=== PATIENT | female | born 1985 | race Caucasian/White ===

== ENCOUNTER 2019-03-09 13:09 | Emergency (ER) | payer OTHER ==
[~2019-03-09] VITALS: Ht 167.6 cm; Wt 90.7 kg
[2019-03-09] MEDS ORDERED: LIDOCAINE HCL 1% 20 ML VIAL ONE (13:42)
[2019-03-09 14:35] VITALS: BP 128/77
--- NOTE | 2019-03-09 14:35 | NUR ---
Patient discharged to home in stable conditon. Written and verbal after care instructions given. Patient verbalizes understanding of instructions. Patient ambulated with stable gait.
== END 2019-03-09 14:36 | disposition home or self-care (01) ==
LOC: ER 13:09
DX: M54.2 Cervicalgia (principal); M25.511 Pain in right shoulder; Z88.0 Allergy status to penicillin
CPT/HCPCS: 20553; 99284; J3490; A4663

== ENCOUNTER 2019-11-29 09:35 | Emergency (ER) | payer OTHER ==
[~2019-11-29] VITALS: Ht 167.6 cm; Wt 85.7 kg
--- NOTE | 2019-11-29 09:43 | NUR ---
Patient ambulated with stable gait. A/Ox4. Speech is clear, speaks in complete sentences. Patient came foir c/o off an allergic reaction to what she thinks is from a new multivitamin that she started taking x3 days ago. Rashes/urticaria localized to the facial region, denies any respiratory distress at this moment. Lung sounds clear bilaterally.
--- NOTE | 2019-11-29 09:47 | NUR ---
Seen and screened by ERMD, patient not in emergent situation. Patient discharged to home in stable condition. Written and verbal after care instructions given. Patient verbalizes understanding of instructions. Stressed follow up or return to ER for worsening s/s. Patient ambulated with stable gait.
[2019-11-29 09:48] VITALS: BP 107/85
== END 2019-11-29 09:48 | disposition home or self-care (01) ==
LOC: ER 09:35
DX: T78.3XXA Angioneurotic edema, initial encounter (principal); Z88.0 Allergy status to penicillin
CPT/HCPCS: A4663

== ENCOUNTER 2019-12-01 14:03 | Emergency (ER) | payer OTHER ==
[~2019-12-01] VITALS: Ht 167.6 cm; Wt 55.8 kg
[2019-12-01] MEDS: predniSONE 50 MG TABLET PO ONE (14:29)
[2019-12-01] MEDS: FAMOTIDINE 20 MG TABLET PO ONE (14:29)
[2019-12-01] MEDS: diphenhydrAMINE 25 MG CAP PO ONE (14:29)
[2019-12-01] MEDS ORDERED: FAMOTIDINE 20 MG TABLET ONE (14:30)
[2019-12-01] MEDS ORDERED: predniSONE 50 MG TABLET ONE (14:30)
[2019-12-01] MEDS ORDERED: diphenhydrAMINE 25 MG CAP PO ONE (14:30)
--- NOTE | 2019-12-01 15:00 | NUR ---
Patient discharged to home in stable condition. Written and verbal after care instructions given. Patient verbalizes understanding of instructions. Stressed follow up or return to ER for worsening s/s.
== END 2019-12-01 15:00 | disposition home or self-care (01) ==
LOC: ER 14:03
DX: L27.0 Generalized skin eruption due to drugs and medicaments taken internally (principal); T45.2X5A Adverse effect of vitamins, initial encounter; Y92.89 Other specified places as the place of occurrence of the external cause; Z88.0 Allergy status to penicillin
CPT/HCPCS: 99284; J7512; Q0163; A4663

== ENCOUNTER 2024-10-19 09:35 | Emergency (ER) | payer MEDICAID, OTHER ==
[~2024-10-19] VITALS: Ht 167.6 cm; Wt 81.6 kg
[2024-10-19 09:37] VITALS: BP 123/70
[2024-10-19] MEDS ORDERED: KETOROLAC TROMETHAMINE 15 MG INJ ONE (09:50)
[2024-10-19] MEDS: IV NORMAL SALINE 1000 ML BAG IV ONE (10:07)
[2024-10-19] MEDS: KETOROLAC TROMETHAMINE 15 MG INJ IVP ONE (10:07)
[2024-10-19 10:09] LABS: PLATELET COUNT (AUTO) 215 K/uL (179-408); RED BLOOD CELL COUNT(AUTO) 4.40 MIL/uL (3.63-4.92); RED CELL DISTRIBUTION WIDTH 14.2 % (12.3-17.7); WHITE BLOOD COUNT (AUTO) 5.7 K/uL (3.8-11.8)
[2024-10-19 10:28] LABS: ASPARTATE AMINOTRANSFERASE 9.0 U/L (15-37); CREATININE 0.6 mg/dL (0.6-1.3); SODIUM SERUM 142.0 mmol/L (136-145); TOTAL PROTEIN, SERUM 8.1 g/dL (6.4-8.2); UREA NITROGEN, BLOOD 12.0 mg/dL (7-18)
[2024-10-19 10:45] LABS: *CLARITY,URINE CLEAR (CLEAR); *COLOR,URINE AMBER (YELLOW); *PROTEIN,URINE 1+ (NEGATIVE); *UROBILINOGEN,URINE 4.0 E.U./dl (NORMAL); NITRITE, URINE POSITIVE (NEGATIVE); UGLUCOSE TRACE (NEGATIVE)
[2024-10-19 10:46] LABS: *BILIRUBIN,URIN NEGATIVE (NEGATIVE); *KETONES,URINE NEGATIVE (NEGATIVE)
[2024-10-19 10:47] LABS: LEUKOCYTE ESTERASE ,URINE 2+ (NEGATIVE)
[2024-10-19 10:53] LABS: *URINE HCG, QUAL NEGATIVE (NEGATIVE)
[2024-10-19] MEDS ORDERED: MEROPENEM 1GM/NS 100ML IVPB **ER PYXIS ONLY IV ONE (11:06)
[2024-10-19] MEDS ORDERED: PHEN-704 PO (11:09)
[2024-10-19] MEDS ORDERED: IBUP-1955 PO (11:09)
[2024-10-19] MEDS ORDERED: CIPR500T5 PO (11:09)
[2024-10-19] MEDS: MEROPENEM 1,000 MG in IV NORMAL SALINE 100 ML IV ONE (11:13)
[2024-10-19 11:19] LABS: *BLOOD, URINE TRACE (NEGATIVE); SQUAMOUS EPITHELIAL CELL,UR FEW /HPF (NONE SEEN)
[2024-10-19 11:45] LABS: *CLARITY,URINE CLEAR (CLEAR); *COLOR,URINE AMBER (YELLOW)
[2024-10-19 11:46] LABS: *BILIRUBIN,URIN TRACE (NEGATIVE); *BLOOD, URINE TRACE (NEGATIVE); *KETONES,URINE NEGATIVE (NEGATIVE); *PROTEIN,URINE 1+ (NEGATIVE); *UROBILINOGEN,URINE 4.0 E.U./dl (NORMAL); LEUKOCYTE ESTERASE ,URINE 3+ (NEGATIVE); NITRITE, URINE POSITIVE (NEGATIVE); UGLUCOSE TRACE (NEGATIVE)
[2024-10-19 12:18] VITALS: BP 123/70; O2SAT 96
== END 2024-10-19 12:19 | disposition home or self-care (01) ==
LOC: ER 09:35
DX: N39.0 Urinary tract infection, site not specified (principal); R10.2 Pelvic and perineal pain; M54.9 Dorsalgia, unspecified; Z88.0 Allergy status to penicillin
CPT/HCPCS: 99284; 96365; 96361; 96375; 80076; 80048; 81001 ×2; 84703; 83690; 85025; 87086; 36415; J1885; J2185; J7040; A4606; A4663